=== PATIENT | female | born 1990 | race Caucasian/White ===

== ENCOUNTER 2017-01-31 10:45 | Emergency (ER) | payer MEDICAID ==
[~2017-01-31] VITALS: Ht 170.2 cm; Wt 54.5 kg
[2017-01-31 10:51] VITALS: Ht 170.2 cm; Wt 54.5 kg
[2017-01-31] MEDS ORDERED: SULF1TAB31 PO (12:28)
--- NOTE | 2017-01-31 19:29 | ERA ---
ER Documentation Chief Complaint Date/Time DATE: 01/31/17 TIME: 19:13 Chief Complaint MOUTH PAIN RADIATING TO LT JAW AND HEAD PAIN S/P FALL, BELIEVES INFECTION HPI This is an otherwise healthy 26-year-old female presented with a chief complaint of lip laceration sustained 4 days ago with warmth and swelling in the area with the past 1 day. Patient states that she has tenderness and is not feeling well. Patient has not taken any medications to relieve the symptoms. Patient denies difficulty breathing, drooling, change in voice, sore throat, chills, or fever. ROS All systems reviewed and are negative except as per history of present illness. Medications Home Meds Active Scripts Sulfamethoxazole/Trimethoprim* (Bactrim Ds* Tablet) 1 Each Tablet, 1 TAB PO BID , #14 TAB Prov:TEO KIRK PA-C 01/31/17 Allergies Allergies: Coded Allergies: Penicillins (Verified Allergy, Intermediate, HIVS/RASH, 01/31/17) PMhx/Soc Medical and Surgical Hx: pt denies Medical Hx Hx Alcohol Use: No Hx Substance Use: No Hx Tobacco Use: No Smoking Status: Never smoker Physical Exam Vitals Vital Signs Date Time Temp Pulse Resp B/P Pulse Ox O2 Delivery O2 Flow Rate FiO2 01/31/17 10:51 99.7 101 18 106/66 99 Physical Exam Const: Well-appearing well-developed 26-year-old female in no acute distress Head: Atraumatic, no scalp tenderness Eyes: Normal Conjunctiva ENT: Abrasion versus avulsion that is 0.5 x 1 cm vertically on the lip traveling to the inside of the lower lip 2 cm to the right of the midline. There is mild to moderate tenderness over the left jaw. No color changes visualized. No history of trauma to the area of swelling. Normal External Ears , and nose. Normal dentition. Neck: Full range of motion..~ No meningismus. Resp: Clear to auscultation bilaterally Cardio: Regular rate and rhythm, no murmurs Abd: Soft, non tender, non distended. Normal bowel sounds Skin: No petechiae or rashes Back: No midline or flank tenderness Ext: No cyanosis, or edema Neur: Awake and alert Psych: Normal Mood and Affect Procedures/MDM This is an otherwise healthy 26-year-old female presented with a chief complaint of lip laceration sustained 4 days ago with warmth and swelling in the area with the past 1 day. Patient's physical examination is remarkable for mild swelling mild to moderate tenderness over the area of swelling. There is a wound on the right side of the lower lip. Patient has no difficulty breathing , fever, chills, drainage, dysgeusia, hot potato voice. At this time a very little suspicion for endangerment of the airway. I have also very low suspicion for lymphangitis, Stephan's angina, peritonsillar abscess, dental infection/dental abscess, or intraorbital swelling. Patient's vitals are stable and her current condition is appropriate for discharge. Patient will be given antibiotics. Patient is allergic to penicillin will be given Bactrim. Patient has been instructed to follow-up with PCP in the next 1-3 days and she is verbally responded that she understands. Have instructed to take ibuprofen for symptomatic relief. Departure Diagnosis: Primary Impression: Skin infection Additional Impressions: Laceration of oral cavity Qualified Code: S01.512A - Laceration of oral cavity, initial encounter Acute pain of mouth Condition: Stable Patient Instructions: Dental Pain Ref[facility]: [facility] Usted se mascorro hecho un examen mdico de control que le indica que no est en larry condicin que requiera tratamiento urgente en el Departamento de Emergencia. Un estudio ms profundo y el tratamiento de mckoy condicin pueden esperar sin ningn riesgo hasta que usted sea atendida/o en el consultorio de mckoy mdico o larry cl jose martin. Es responsabilidad suya arreglar larry artur para el seguimiento del chani. MANEJO DE CONDICIONES NO URGENTES EN EL FUTURO 1) Si usted tiene un mdico de atencin primaria: Usted debera llamar a mckoy mdico de atencin primaria antes de venir al departamento de emergencia. Despus de las horas de consultorio, mckoy doctor o mckoy asociado/a est disponible por telfono. El mdico o enfermero de [place] en el servicio telefnico puede asesorarle por yolis medio para atender el problema, o chani contrario se puede programar larry artur. 2) Si usted no tiene un mdico de atencin primaria: Llame al mdico o clnica de referencia que aparece abajo koko las horas de consultorio para hacer larry artur para que le vean. CLINICAS: [facility] [phone] [facility] [phone] [facility] [phone] [facility] [phone] [place] [phone] [facility] [phone] [address] Additional Instructions: Follow up with your PCP within the next 1-3 days for a more thorough evaluation and a possible referral to a specialist. Return the the emergency department immediately if symptoms worsen or change. If you have any questions regarding medications, ask your pharmacist or us before you leave. If any adverse reactions occur while taking your medications, discontinue the treatment and return to the emergency department immediately. Take your medications as directed, and complete the entire course of treatment. TEO KIRK PA-C Jan 31, 2017 19:25
== END 2017-01-31 12:38 | disposition home or self-care (01) ==
LOC: FTE 10:45
DX: S01.511A Laceration without foreign body of lip, initial encounter (principal); L08.9 Local infection of the skin and subcutaneous tissue, unspecified; W19.XXXA Unspecified fall, initial encounter; Y92.9 Unspecified place or not applicable
CPT/HCPCS: 99283

== ENCOUNTER 2017-04-01 19:14 | Emergency (ER) | payer SELFPAY ==
[~2017-04-01 19:14] MED LIST: SULF1TAB31 PO
== END 2017-04-01 19:36 | disposition left against medical advice (07) ==
LOC: E/R 19:14
DX: Z53.21 Procedure and treatment not carried out due to patient leaving prior to being seen by health care provider (principal)

== ENCOUNTER 2017-04-01 20:20 | Emergency (ER) | payer OTHER ==
[~2017-04-01] VITALS: Ht 170.2 cm; Wt 56.8 kg
[2017-04-01 20:22] VITALS: Ht 170.2 cm; Wt 56.8 kg
[2017-04-01] MEDS ORDERED: SOD CHLORIDE 0.9% 1,000 ML IV STA (20:32)
[2017-04-01] MEDS ORDERED: NALOXONE (0.4 MG/ML) INJ IV ONE (21:00)
[2017-04-01 21:05] LABS: BASOPHILS % 0.2 % (0.0-2.0); EOSINOPHILS % 0.2 % (0.0-7.0); HEMATOCRIT 32.2 % (37.0-47.0); HEMOGLOBIN 9.8 g/dl (12.0-16.0); LYMPHOCYTES # 2.3 10^3/ul (0.8-2.9); LYMPHOCYTES % 27.9 % (15.0-51.0); MEAN CORPUSCULAR HEMOGLOBIN 21.7 pg (29.0-33.0); MEAN CORPUSCULAR HGB CONC 30.4 g/dl (32.0-37.0); MEAN CORPUSCULAR VOLUME 71.2 fl (82.0-101.0); MEAN PLATELET VOLUME 9.8 fl (7.4-10.4); MONOCYTE # 0.6 10^3/ul (0.3-0.9); MONOCYTES % 6.7 % (0.0-11.0); NEUTROPHILS % 64.8 % (39.0-77.0); PLATELET COUNT 334 10^3/UL (140-415); RED BLOOD COUNT 4.52 10^6/ul (4.20-5.40); RED CELL DISTRIBUTION WIDTH 19.5 % (11.5-14.5); WHITE BLOOD COUNT 8.3 10^3/ul (4.8-10.8)
[2017-04-01 21:16] LABS: ADD UMIC NO; UR ASCORBIC ACID NEGATIVE (NEGATIVE); UR BILIRUBIN (Dip) NEGATIVE (NEGATIVE); UR BLOOD (Dip) NEGATIVE (NEGATIVE); UR CLARITY CLEAR (CLEAR); UR COLOR STRAW (YELLOW); UR GLUCOSE (Dip) NEGATIVE (NEGATIVE); UR KETONES (Dip) NEGATIVE (NEGATIVE); UR LEUKOCYTE ESTERASE (Dip) NEGATIVE Leu/ul (NEGATIVE); UR NITRITE (Dip) NEGATIVE (NEGATIVE); UR SPECIFIC GRAVITY (Dip) 1.009 (1.003-1.030); UR TOTAL PROTEIN (Dip) NEGATIVE (NEGATIVE); UR UROBILINOGEN (Dip) NEGATIVE (NEGATIVE)
[2017-04-01 21:20] LABS: INR 1.11; PROTIME 14.3 Sec (12.2-14.2); PT RATIO 1.1
[2017-04-01 21:21] LABS: PARTIAL THROMBOPLASTIN TIME 30.6 Sec (25.0-35.0)
[2017-04-01 21:27] LABS: ALANINE AMINOTRANSFERASE 43 IU/L (13-69); ALBUMIN 4.5 g/dl (3.3-4.9); ALBUMIN/GLOBULIN RATIO 1.15; ALKALINE PHOSPHATASE 74 IU/L (42-121); ANION GAP 23 (8-16); ASPARTATE AMINO TRANSFERASE 49 IU/L (15-46); BILIRUBIN,INDIRECT 0.1 mg/dl (0-1.1); BILIRUBIN,TOTAL 0.1 mg/dl (0.2-1.3); BLOOD UREA NITROGEN 17 mg/dl (7-20); CARBON DIOXIDE 21 mmol/L (21-31); CHLORIDE 102 mmol/L (97-110); CREATININE 0.94 mg/dl (0.44-1.00); GLUCOSE 77 mg/dl (70-220); POTASSIUM 4.2 mmol/L (3.5-5.1); SODIUM 142 mmol/L (135-144); TOTAL PROTEIN 8.4 g/dl (6.1-8.1)
[2017-04-01 21:30] LABS: ACETAMINOPHEN < 10.0 ug/ml (10.0-30.0); ETHANOL < 10.0 mg/dl; SALICYLATE < 1.0 mg/dl (5.0-30.0)
[2017-04-01] MEDS ORDERED: DIPHENHYDRAMINE 50 MG INJ IV ONE (21:30)
[2017-04-01] MEDS ORDERED: HALOPERIDOL 5 MG INJ IV ONE (21:30)
[2017-04-01] MEDS ORDERED: LORAZEPAM 2 MG INJ IV ONE (21:30)
[2017-04-01 21:37] LABS: TROPONIN-I 0.053 ng/ml (0.00-0.12)
[2017-04-01 21:38] LABS: BARBITURATES Negative (NEGATIVE); BENZODIAZEPINES Negative (NEGATIVE); CANNABINOIDS Negative (NEGATIVE); COCAINE Positive (NEGATIVE); OPIATES Positive (NEGATIVE)
--- NOTE | 2017-04-01 22:10 | RADRPT ---
PROCEDURE: XR Chest. CLINICAL INDICATION: Altered mental status. TECHNIQUE: Single frontal view of the chest. COMPARISON: None. FINDINGS: The cardiomediastinal silhouette is within normal limits. Pulmonary vascular markings are accentuate d by overlying soft tissues. The lungs are otherwise clear. No signs of pleural fluid or pneumothor ax are seen. The osseous structures and soft tissues are unremarkable. IMPRESSION: No evidence for active cardiopulmonary disease. RPTAT: [facility] Physician Celio Date Time Electronically viewed and signed by Physician Celio on 04/01/2017 22:10 RS/
--- NOTE | 2017-04-02 00:56 | ERA ---
ER Documentation Chief Complaint Date/Time DATE: 04/02/17 TIME: 00:50 Chief Complaint passed out in the triage, pale in color, stuttering HPI This is a 26-year-old female with a history of polysubstance abuse is presenting with concerns of an overdose. The patient was reportedly here earlier asking for methadone but she eloped. She returned with her partner waxing and waning between lethargy and aggression. The patient would scream and yell coherent obscenities, but she refused to answer any questions. She has track perez bilaterally. The rest of her history was limited secondary to patient compliance versus altered mental status. ROS Review of systems limited secondary to patient's altered mental status Medications Home Meds Active Scripts Sulfamethoxazole/Trimethoprim* (Bactrim Ds* Tablet) 1 Each Tablet, 1 TAB PO BID , #14 TAB Prov:TEO KIRK PA-C 01/31/17 Allergies Allergies: Coded Allergies: Penicillins (Verified Allergy, Intermediate, HIVS/RASH, 01/31/17) PMhx/Soc Polysubstance abuse Medical and Surgical Hx: Unable to obtain Hx Alcohol Use: No Hx Substance Use: No Hx Tobacco Use: No Smoking Status: Unknown if ever smoked FmHx Unable to obtain secondary to altered mental status Family History: diabetes Physical Exam Vitals Vital Signs Date Time Temp Pulse Resp B/P Pulse Ox O2 Delivery O2 Flow Rate FiO2 04/02/17 00:06 78 18 99/56 100 Room Air 04/01/17 22:19 98.2 87 20 98/62 98 Room Air 04/01/17 20:22 98.1 121 16 92/50 97 Physical Exam Const: Somnelent but arousable, mild distress Head: Atraumatic Eyes: Normal Conjunctiva, pupils pinpoint ENT: Normal External Ears, Nose and Mouth. Neck: Full range of motion.~ No meningismus. Resp: Clear to auscultation bilaterally Cardio: Regular rate and rhythm, no murmurs Abd: Soft, non tender, non distended. Normal bowel sounds Skin: No petechiae or rashes, track perez to arms Back: No midline or flank tenderness Ext: No cyanosis, or edema Neur: Arousable, moves all extremities spontaneously, moves all extremities to painful stimulation Psych: Waxes and wanes between somnelent and agitated Result Diagram: [id number]/203104/01/172031 Results 24 hrs Laboratory Tests Test 04/01/17 20:32 04/01/17 20:40 White Blood Count 8.310^3/ul Red Blood Count 4.5210^6/ul Hemoglobin 9.8g/dl Hematocrit 32.2% Mean Corpuscular Volume 71.2fl Mean Corpuscular Hemoglobin 21.7pg Mean Corpuscular Hemoglobin Concent 30.4g/dl Red Cell Distribution Width 19.5% Platelet Count 09846^3/UL Mean Platelet Volume 9.8fl Neutrophils % 64.8% Lymphocytes % 27.9% Monocytes % 6.7% Eosinophils % 0.2% Basophils % 0.2% Nucleated Red Blood Cells % 0.0/100WBC Neutrophils # (Manual) 510^3/ul Lymphocytes # 2.310^3/ul Monocytes # 0.610^3/ul Eosinophils # 0.010^3/ul Basophils # 0.010^3/ul Nucleated Red Blood Cells # 0.010^3/ul Prothrombin Time 14.3Sec Prothrombin Time Ratio 1.1 INR International Normalized Ratio 1.11 Activated Partial Thromboplast Time 30.6Sec Sodium Level 142mmol/L Potassium Level 4.2mmol/L Chloride Level 102mmol/L Carbon Dioxide Level 21mmol/L Anion Gap 23 Blood Urea Nitrogen 17mg/dl Creatinine 0.94mg/dl Glucose Level 77mg/dl Calcium Level 10.0mg/dl Total Bilirubin 0.1mg/dl Direct Bilirubin 0.00mg/dl Indirect Bilirubin 0.1mg/dl Aspartate Amino Transf (AST/SGOT) 49IU/L Alanine Aminotransferase (ALT/SGPT) 43IU/L Alkaline Phosphatase 74IU/L Troponin I 0.053ng/ml Total Protein 8.4g/dl Albumin 4.5g/dl Globulin 3.90g/dl Albumin/Globulin Ratio 1.15 Serum HCG, Qualitative NEGATIVE Salicylates Level < 1.0mg/dl Acetaminophen Level < 10.0ug/ml Ethyl Alcohol Level < 10.0mg/dl Urine Color STRAW Urine Clarity CLEAR Urine pH 5.0 Urine Specific Cut Off 1.009 Urine Ketones NEGATIVEmg/dL Urine Nitrite NEGATIVEmg/dL Urine Bilirubin NEGATIVEmg/dL Urine Urobilinogen NEGATIVEmg/dL Urine Leukocyte Esterase NEGATIVELeu/ul Urine Hemoglobin NEGATIVEmg/dL Urine Glucose NEGATIVEmg/dL Urine Total Protein NEGATIVEmg/dl Urine Opiates Screen Positive Urine Barbiturates Negative Urine Amphetamines Screen Negative Urine Benzodiazepines Screen Negative Urine Cocaine Screen Positive Urine Cannabinoids Negative Current Medications Medications (Trade) Dose Ordered Sig/Prem Route PRN Reason Start Time Stop Time Status Last Admin Dose Admin Sodium Chloride (NS) 1,000 ml @ 1,000 mls/hr Q1H STAT IV 04/01/17 20:32 04/01/17 21:31 DC 04/01/17 21:02 Naloxone HCl (Narcan) 0.2 mg ONCE ONCE IV 04/01/17 21:00 04/01/17 21:01 DC 04/01/17 21:01 Diphenhydramine HCl (Benadryl) 25 mg ONCE ONCE IV 04/01/17 21:30 04/01/17 21:31 DC 04/01/17 21:17 Haloperidol (Haldol) 5 mg ONCE ONCE IV 04/01/17 21:30 04/01/17 21:31 DC 04/01/17 21:16 Lorazepam (Ativan) 2 mg ONCE ONCE IV 04/01/17 21:30 04/01/17 21:31 DC 04/01/17 21:16 Procedures/MDM The patient's presentation warrants a workup for altered mental status. The patient was initially somnolent, but she is arousable and responds appropriately to painful stimulation. She did coherently call for her significant other when she was agitated from the painful stimuli. Unfortunately , she was unable to or would not answer any other questions. As the patient had eloped earlier in the day after requesting methadone, there is concern of opiate overdose. The patient was given 0.2 mg of Narcan IV and she woke up almost immediately. Unfortunately, she became extremely aggressive and agitated. She still would not answer any questions, but there were concerns of safety to herself as well as the house staff. She was given Benadryl, Haldol and Ativan to calm her. This successfully sedated her. She remained on the monitor throughout the sedation. She did ultimately begin to wake up and would answer questions more calmly. She does state that she took several ibuprofen in addition to other drugs. However, she denies any suicidal or homicidal ideations at this time. Patient's blood work was obtained and reviewed. The patient's CBC and CMP were mostly unremarkable. The patient does have a mild anemia that does not need to be emergently treated. She does not have leukocytosis. She is afebrile and I do not suspect a systemic infection. The patient's CMP shows a mild transaminitis, as well as a mild anion gap. She was given IV fluids in the emergency department for the mild acidosis. Transaminitis is likely associated with polysubstance abuse. A toxicology panel was completed. The patient did not have any salicylates or acetaminophen or alcohol in her system. Her UDS was positive for opiates as well as cocaine. Her urinalysis is negative for infection or hematuria. She is not today. The patient was signed out to the oncoming physician in order to metabolize until clinically sober. She will require reassessment when clinically sober, but I do not feel at this time that she requires a psychiatric hold. She may require social work consultation when she is sober as well, but this will be deferred to the physician taking over. Departure Diagnosis: Primary Impression: Acute drug overdose Qualified Code: T50.901D - Acute drug overdose, accidental or unintentional, subsequent encounter Additional Impression: Altered mental status Qualified Code: R40.4 - Transient alteration of awareness Condition: GRACIELA Jaime MD Apr 02, 2017 00:55
[2017-04-02 06:00] VITALS: BP 93/57; PULSE 77; RESP 20; TEMP 98.2
== END 2017-04-02 07:45 | disposition home or self-care (01) ==
LOC: FTE 20:20 → E/R 04-02 07:45
DX: T40.3X1A Poisoning by methadone, accidental (unintentional), initial encounter (principal); R41.82 Altered mental status, unspecified
CPT/HCPCS: 36415; 71010; 80053; 80306; 80307; 81003; 84484; 84703; 85025; 85610; 85730; 87086; 93005; 96361; 96374; 96375; J1200; J1630; J2060; J2310; J7030; Z7502